=== PATIENT | male | born 1945 | race Caucasian/White ===

== ENCOUNTER → 2024-06-23 | Outpatient (BNVA) | payer MEDICARE, BC, SELFPAY | END | disposition home or self-care (01) | PROVIDERS: PCP Family Medicine; Referring Provider Family Medicine; Visit Provider Urology | DX: C61 Malignant neoplasm of prostate (principal); N40.1 Benign prostatic hyperplasia with lower urinary tract symptoms; N13.8 Other obstructive and reflux uropathy; I10 Essential (primary) hypertension; E11.9 Type 2 diabetes mellitus without complications | CPT/HCPCS: 55700; 76942; 81003; 96372; A4649; J1580; J3490; A9270 ==

== ENCOUNTER → 2024-06-25 | Outpatient (BNVA) | payer MEDICARE, BC, SELFPAY | END | disposition home or self-care (01) | PROVIDERS: PCP Family Medicine; Referring Provider Family Medicine; Visit Provider Urology | DX: N40.1 Benign prostatic hyperplasia with lower urinary tract symptoms (principal); N13.8 Other obstructive and reflux uropathy; E11.9 Type 2 diabetes mellitus without complications; I10 Essential (primary) hypertension; C15.9 Malignant neoplasm of esophagus, unspecified | CPT/HCPCS: 81003; 99212; G0463 ==

== ENCOUNTER → 2024-07-27 | Outpatient (CLI) | payer MEDICARE, BC, SELFPAY ==
[2024-07-27 14:26] LABS: Basophils % (Auto) 0 % (0-2.5); Eosinophils # (Auto) 0.1 Thou/mm3 (0.0-0.5); Eosinophils % (Auto) 1 % (0-10); Hematocrit 42.4 % (41.0-53.0); Hemoglobin 13.6 g/dL (13.5-16.0); Immature Granulocytes % (Auto) 0 % (0-0); Immature Granulocytes Auto 0.02 Thou/mm3 (0.00-0.00); Lymphocytes # (Auto) 1.3 Thou/mm3 (1.0-4.8); Lymphocytes % (Auto) 16 % (10-50); Mean Corpuscular HGB Conc 32.1 g/dl (31.0-37.0); Mean Corpuscular Hemoglobin 29.1 pg (25.0-35.0); Mean Corpuscular Volume 91 fL (80-100); Monocytes # (Auto) 0.6 Thou/mm3 (0.0-0.8); Monocytes % (Auto) 8 % (0-12); Neutrophils # (Auto) 6.2 Thou/mm3 (1.8-7.7); Neutrophils % (Auto) 75 % (37-80); Nucleated Red Blood Cell % 0 /100 WBC (0); Platelet Count 173 Thou/mm3 (140-440); RDW Standard Deviation 45.7 fL (35.1-43.9); Red Blood Count 4.67 Miln/mm3 (4.50-5.90); White Blood Count 8.3 Thou/mm3 (3.8-10.6)
[2024-07-27 14:38] LABS: T4 (Thyroxine) 6.2 mcg/dL (4.5-10.9)
[2024-07-27 15:00] LABS: Alanine Aminotransferase 17 U/L (10-49); Albumin, Serum 4.1 gm/dL (3.4-4.8); Albumin/Globulin Ratio 1.9 (1.2-2.2); Anion Gap 7 (7-16); Aspartate Amino Transferase 17 U/L (0-34); BUN/Creatinine Ratio 13 Ratio (12-20); Bilirubin,Total 0.6 mg/dL (0.3-1.2); Blood Urea Nitrogen 12 mg/dL (9-23); Calcium 9.3 mg/dL (8.3-10.6); Calcium (Corrected) 9.3 mg/dL (8.5-10.1); Carbon Dioxide 29.7 mMol/L (20.0-31.0); Cardiac Risk Estimate 2.7 RATIO (4.0-6.7); Chloride 103 mMol/L (98-107); Cholesterol 130 mg/dL (132-200); Creatinine (Component) 0.9 mg/dL (0.6-1.3); Globulin 2.2 gm/dL (2.3-3.5); Glucose 136 mg/dL (74-106); HDL Cholesterol 48 mg/dL (40-60); LDL Cholesterol,Calculated 64 mg/dL (0-130); Osmolality,Calculated 281 (275-295); Potassium 4.6 mMol/L (3.4-5.1); Sodium 140 mMol/L (136-145); Thyroid Stimulating Hormone 1.85 uIU/mL (0.55-4.78); Total Protein 6.3 gm/dL (5.7-8.2); Triglycerides 89 mg/dL (30-150); eGFR > 60 See Note
[2024-07-27 15:12] LABS: Alkaline Phosphatase 89 U/L (46-116)
[2024-07-27 16:00] LABS: Glucose Estimated Average 123 mg/dL (80-131); Hemoglobin A1C 5.9 % Hgb (4.8-6.0)
== END | disposition home or self-care (01) ==
LOC: COPL 13:33
PROVIDERS: PCP Family Medicine; Referring Provider Family Medicine; Visit Provider Family Medicine
DX: E78.2 Mixed hyperlipidemia (principal); I10 Essential (primary) hypertension; E11.9 Type 2 diabetes mellitus without complications; N40.1 Benign prostatic hyperplasia with lower urinary tract symptoms
CPT/HCPCS: 36415; 80053; 80061; 83036; 84436; 84443; 85025

== ENCOUNTER 2024-07-29 10:14 | Day surgery (SDC) | payer MEDICARE, BC, SELFPAY ==
[2024-07-28 10:44] VITALS: BMI 33.3
--- NOTE | 2024-07-28 13:12 | SUR.PREOP ---
Cardiac history and records reviewed with Dr Santo.
[2024-07-29] VITALS (7 sets, daily range): BP systolic 140–154; BP diastolic 78–93; PULSE 78–98; RESP 13–20; TEMP 36.3–36.8; O2SAT 95–99; BMI 32.3
--- NOTE | 2024-07-29 11:08 | SUR.PREOP ---
Dr Santo made aware of cardiac strip and pt stating he has vomited in the past upon induction of anesthesia.
--- NOTE | 2024-07-29 14:09 | PD.SUROPNT ---
Date of Procedure 07/29/24 Post Op Diagnosis Same Findings BPH with urinary obstruction, thickly trabeculated bladder with diverticuli no tumor recurrence Estimated Blood Loss 0.2 Surgeon Hernandez Humphreys MD Surgical Staff Operation Date: 07/29/24 12:30 Case Staff Anesthesiologist: John Santo
--- NOTE | 2024-07-29 14:19 | ESOP_ITS ---
Date of Procedure 07/29/24 Pre Op Diagnosis BPH with urinary obstruction and LUTS, bladder tumor status post TURBT more than 10 years ago status post bladder instillation of BCG Newly diagnosed prostate cancer Post Op Diagnosis Same Procedure Cystoscopic examination Findings Obstructive prostate with multiple shallow diverticuli no bladder tumor recurrence Procedure Description Indication for procedure this is a 79-year-old gentleman he is status post TURBT had a bladder instillation of BCG for bladder tumor more than 10 years ago he stafford d no recurrence he was recommended cystoscopic examination procedure and complications were discussed with the patient in great detail informed consent is obtained The patient received 120 mg Gentamicin IM pre-op prophylaxis. Informed consent was obtained for the procedure. General anesthesia was given uneventfully patient was positioned in a dorsal lithotomy position the patient was prepped in a sterile manner. Local anesthetic was placed into the urethra. Cystoscopy was then performed. The urethra had no intrinsic lesions up to the prostatic fossa. There was [bilobar/trilobar] prostatic enlargement. Examination of the bladder revealed no evidence of cancerous lesions, papillary or polyp type lesions or stones. There was marked] trabeculation with cellules and diverticula. There was diverticula posterior bladder wall right side no tumor in the diverticula both ureters were putting out clear urine. The bladder was completely drained and the scope removed. The patient tolerated the procedure well. Post-op instructions were given. The patient is to call the office should any problems occur. Follow-up appointment in urology office is given Anesthesia MAC Pathology / specimen None Estimated Blood Loss 0.1 Condition Stable Disposition PACU Surgeon Hernandez Humphreys MD Surgical Staff Operation Date: 07/29/24 12:30 Case Staff Anesthesiologist: John Santo
--- NOTE | 2024-07-29 14:48 | SUR.PHASEII ---
pt received from OR in recovery bay 2. pt asleep but responds to voice, breathing unlabored on room oxymask 2l. v/s stable. report received from Dr. Santo and Killian DUPONT.
--- NOTE | 2024-07-29 15:59 | SUR.PHASEII ---
pt awake and alert, breathing unlabored on room air. v/s stable. pt able to ambulate to wheelchair with steady gait. d/c instructions given with sister in room, all questions answered. pt d/c via wheelchair with all belongings.
== END 2024-07-29 15:59 | disposition home or self-care (01) ==
PROVIDERS: PCP Family Medicine; Referring Provider Urology; Visit Provider Urology
PROC: 0T7B8ZZ Dilation of Bladder, Via Natural or Artificial Opening Endoscopic (ICD-10-PCS; CPT 52000; principal; 2024-07-29 12:15)
DX: C61 Malignant neoplasm of prostate (principal); N13.8 Other obstructive and reflux uropathy; N40.1 Benign prostatic hyperplasia with lower urinary tract symptoms
CPT/HCPCS: 52000; A4217; A4649; J1580; J2704; J3010

== ENCOUNTER → 2024-09-18 | Outpatient (BNVA) | payer MEDICARE, BC, SELFPAY | END | disposition home or self-care (01) | PROVIDERS: PCP Family Medicine; Referring Provider Family Medicine; Visit Provider Urology | DX: C61 Malignant neoplasm of prostate (principal); Z85.01 Personal history of malignant neoplasm of esophagus; Z85.51 Personal history of malignant neoplasm of bladder; Z80.42 Family history of malignant neoplasm of prostate; I10 Essential (primary) hypertension; E11.9 Type 2 diabetes mellitus without complications | CPT/HCPCS: 99212; G0463 ==

== ENCOUNTER → 2024-11-04 | Outpatient (CLI) | payer MEDICARE, BC, SELFPAY ==
[2024-11-04 11:37] LABS: Basophils % (Auto) 0 % (0-2.5); Eosinophils # (Auto) 0.1 Thou/mm3 (0.0-0.5); Eosinophils % (Auto) 1 % (0-10); Hematocrit 40.7 % (41.0-53.0); Hemoglobin 13.6 g/dL (13.5-16.0); Immature Granulocytes % (Auto) 0 % (0-0); Immature Granulocytes Auto 0.02 Thou/mm3 (0.00-0.00); Lymphocytes # (Auto) 1.1 Thou/mm3 (1.0-4.8); Lymphocytes % (Auto) 14 % (10-50); Mean Corpuscular HGB Conc 33.4 g/dl (31.0-37.0); Mean Corpuscular Hemoglobin 29.8 pg (25.0-35.0); Mean Corpuscular Volume 89 fL (80-100); Monocytes # (Auto) 0.6 Thou/mm3 (0.0-0.8); Monocytes % (Auto) 7 % (0-12); Neutrophils # (Auto) 6.1 Thou/mm3 (1.8-7.7); Neutrophils % (Auto) 78 % (37-80); Nucleated Red Blood Cell % 0 /100 WBC (0); Platelet Count 184 Thou/mm3 (140-440); RDW Standard Deviation 45.4 fL (35.1-43.9); Red Blood Count 4.57 Miln/mm3 (4.50-5.90); White Blood Count 7.8 Thou/mm3 (3.8-10.6)
[2024-11-04 11:54] LABS: Prostate Specific Antigen 8.31 ng/mL (0-4.00)
[2024-11-04 12:01] LABS: Alanine Aminotransferase 12 U/L (10-49); Albumin, Serum 4.1 gm/dL (3.4-4.8); Albumin/Globulin Ratio 1.9 (1.2-2.2); Alkaline Phosphatase 78 U/L (46-116); Anion Gap 12 (7-16); Aspartate Amino Transferase 15 U/L (0-34); BUN/Creatinine Ratio 12 Ratio (12-20); Bilirubin,Total 0.7 mg/dL (0.3-1.2); Blood Urea Nitrogen 11 mg/dL (9-23); Calcium 8.4 mg/dL (8.3-10.6); Calcium (Corrected) 8.4 mg/dL (8.5-10.1); Carbon Dioxide 27.4 mMol/L (20.0-31.0); Chloride 105 mMol/L (98-107); Creatinine (Component) 0.9 mg/dL (0.6-1.3); Globulin 2.2 gm/dL (2.3-3.5); Glucose 102 mg/dL (74-106); Osmolality,Calculated 286 (275-295); Potassium 4.4 mMol/L (3.4-5.1); Sodium 144 mMol/L (136-145); Total Protein 6.3 gm/dL (5.7-8.2); eGFR > 60 See Note
== END | disposition home or self-care (01) ==
LOC: COPL 10:49
PROVIDERS: PCP Family Medicine; Referring Provider Family Medicine; Visit Provider Family Medicine
DX: E11.9 Type 2 diabetes mellitus without complications (principal); I10 Essential (primary) hypertension; R97.20 Elevated prostate specific antigen [PSA]
CPT/HCPCS: 36415; 80053; 84153; 85025

== ENCOUNTER 2024-11-19 00:44 | Emergency (ER) | payer MEDICARE, BC, SELFPAY ==
[2024-11-19 00:45] VITALS: BMI 32.1
[2024-11-19 01:13] VITALS: BP 150/99; PULSE 98; RESP 18; TEMP 36.8; O2SAT 95
--- NOTE | 2024-11-19 01:25 | PD.EDMALE ---
ED Male Genitalurinary RME/HPI General Chief complaint: Urogenital-Male Stated complaint: BLEEDING FROM CATHETER, RECENT PROSTATE SURGERY Time Seen by Provider: 11/19/24 01:02 Arrival date/time: 11/19/24 00:44 RME / HPI RME / HPI Narrative: Dr. Canas?s Main ED Evaluation: 79yo male who had a recent prostatectomy 1 week ago at [facility] [place] Dr. Nielsen and Dr. Humphreys presents to the ED for a chief complaint of hematuria. Patient states he had one episode of hematuria yesterday, reporting his home health nurse flushed the catheter and had no further issues. Patient states he had another episode tonight, reporting he felt his leg was wet and was unsure where it was coming from, so he came in for evaluation. Patient denies any abdominal pain, fever, chills, constipation, N/V or any other associated symptoms. Patient is on Eliquis. Patient notes he is supposed to have a follow-up appointment with Dr. Humphreys later this morning to get his dunham catheter removed. NKA. Related Data Home Medications ?Medication ?Instructions ?Recorded ?Confirmed Amlodipine Besylate 1 tab PO DAILY High Blood Pressure 04/14/13 12/11/24 ##0 Metformin Hcl 2 tab PO QPM Diabetes ##0 04/14/13 12/11/24 cholecalciferol (vitamin D3) 50 1 tab PO DAILY ##0 04/14/13 12/11/24 mcg (2,000 unit) tablet (Vitamin D3) tamsulosin 0.4 mg capsule (Flomax) 2 tab PO DAILY Prostate ##0 04/14/13 12/11/24 losartan 100 mg tablet 100 mg PO QDAY 07/25/21 12/11/24 aspirin 81 mg tablet,delayed 81 mg PO QDAY 11/01/23 12/11/24 release sodium bicarbonate 325 mg tablet 325 mg PO QDAY 02/28/24 12/11/24 apixaban 2.5 mg tablet (Eliquis) 2.5 mg PO BID 12/11/24 12/11/24 Allergies Allergy/AdvReac Type Severity Reaction Status Date / Time No Known Allergies Allergy Verified 12/11/24 13:16 Review of Systems Review of Systems Systems Reviewed: All systems reviewed, normal except as documented Past Medical History Past Medical History NEUROLOGIC: Negative Neurological Disorders or Seizures CARDIAC: Positive Cardiac Disorders, Cardiac Arrhythmia (SVT), Edema (a little) and Hypertension; Negative Congestive Heart Failure RESPIRATORY: Negative Chronic Obstructive Pulmonary Disease (COPD) GASTROINTESTINAL: Positive Gastrointestinal Disorders and Obesity; Negative Hepatitis GENITOURINARY: Positive Genitourinary Disorders, Kidney Stones and Benign Prostatic Hyperplasia; Negative Renal Disease MUSCULOSKELETAL: Negative Musculoskeletal Disorders ENT: Positive Glaucoma (being monitored); Negative Cataracts ENDOCRINE: Positive Endocrine Disorders and Diabetes Mellitus Type 2; Negative Diabetes Mellitus Type 1 HEMATOLOGIC: Negative Blood Disorders OTHER HISTORY: Positive Hospitalization (surgeries, and passing out, SVT), Chemotherapy (2015 bladder instillations), Chicken Pox, Measles, Mumps, Clostridium Difficile and Cancer (Esophageal CA 2001, Bladder CA 2014); Negative Autoimmune Disease, Shingles, Blood Transfusions, Blood Transfusion Reaction or Anesthesia Reactions Family History FAMILY HISTORY: Positive Family Cardiac Disorders and Family Surgery; Negative Family Psychiatric Problems, Family Respiratory Disorders, Family Gastrointestinal Problems, Family Cancer or Family Anesthesia Reaction Surgical History SURGICAL: Positive Cardiac Surgery (abation for SVT), Joint Replacement and Open Reduction Internal Fixation (Left ankle 2003, has metal); Negative Ear Surgery Social History SMOKING STATUS: Never smoker ED Exam Narrative Physical exam: GEN. APPEARANCE: The patient is alert awake oriented X-3 in no distress, lying down comfortably, does not look ill/toxic. Patient has good eye contact. Patient is cooperative. VITALS: All vitals were reviewed and the pulse ox is 95% on room air which is normal according to my interpretation. HEENT: Normocephalic, atraumatic. Pupils are equal and reactive. Oral mucosa is moist. Patent Nares NECK: Supple, nontender, no thyromegaly, no meningismus, no JVD CHEST: Symmetrical, atraumatic, and with equal expansion , Nontender on palpation no deformity and no crepitus. CARDIOVASCULAR: Heart regular rhythm no murmur or gallop rub or extra beats. LUNGS: Clear to auscultation bilaterally with symmetrical chest rise. No laboring tachypnea or wheezing. No intercostal subcostal retraction. No rales and no rhonchi. ABDOMEN: Soft, flat, nontender to palpation, no guarding or rebound tenderness. There are no abnormal masses palpated. Active and normal bowel sounds. EXTREMITIES: Nontender. No edema. No cyanosis. Patient is able to move all 4 extremities well, with full ROM and good CSM. : Supervisor Final present. Dunham catheter in place with dark brown urine in the tube, minimal urine noted in the dunham bag. No blood at the meatus. SKIN: Warm and dry, no jaundice or rashes noted. NEURO: Patient is MCNALLY x 4, Cranial nerves II through XII grossly intact. There is no focal neurologic deficits noted. GCS is 15, PNS and SANITATION OFFICER appear grossly intact. : catheter in place with minimal urine in bag PSYCHIATRIC: Patient is in normal mood and affect. Course Quality Measures none Orders Category Date Time Status Bladder Scan NEEDED Care 11/19/24 02:18 Completed Dunham to Leg Bag Routine Care 11/19/24 01:35 Ordered Irrigate Urinary Catheter PRN Care 11/19/24 01:35 Completed Vital Signs Vital signs: Vital Signs Temperature 98.2 F 11/19/24 01:13 Pulse Rate 98 11/19/24 01:13 Respiratory Rate 18 11/19/24 01:13 Blood Pressure 150/99 H 11/19/24 01:13 Pulse Oximetry (%) 95 11/19/24 01:13 Oxygen Delivery Method Room Air 11/19/24 01:13 Urogenital - Male MDM Narrative MDM Narrative:: Scribe Attestation: 11/19/24 - Corinne Magaña am scribing for and in the presence of Dr. Canas. Patient presents with non draining dunham catheter. No abd pain/fever/flank pain or difficulty passing gas. Patient is HD stable. Will attempt to flush catheter, and if able to drain bladder will dc to home so he can go to his urology appt today. Patient not septic. Patient's dunham was flushed and is now draining. Bladder scan shows 0cc. Patient is stable to be discharged home. Patient data External records reviewed:: [facility] previous records (Per chart review, patient has no previous ED visits or admissions to this facility.) Clinical information provided by:: patient Social determinants that could affect healthcare access:: none Patient has the following chronic illnesses:: DM, HTN, BPH s/p prostatectomy How is presenting disease/condition affected by chronic disease/condition?: exacerbated by Evaluation data The following diagnostics were reviewed and interpreted by me:: other (specify) (none) Lab and/or radiology exams considered but not ordered:: none Interpretation Summary: none Medications / Prescriptions Medications or Prescriptions considered but not ordered:: none Medication administrations:: none Consultations Consultation(s) initiated? (list below): No Diagnosis Urogenital Male Differential Diagnosis: other (bladder outlet obstruction, hematuria, hardware malfunction) Most likely diagnosis given after review of the tests above:: see clinical impression below Admission Indicated Admission indicated?: not indicated Admission Request Was there a request for admission?: No Disposition Plan Disposition Plan: Discharge Discharge Attestation Discharge Attestation: The patient and all family members were given an opportunity to ask questions and understood the discharge instructions. Discharge instructions specifically effects, indications for sooner follow up or return to the emergency department, and the expected course of current diagnosis. Patient condition: Stable Discharge Plan Plan Patient Disposition: HOME (Self Care) Prescriptions/Referrals Prescriptions/Med Rec: No Action Eliquis 2.5 mg tablet 2.5 mg PO BID losartan 100 mg tablet 100 mg PO QDAY aspirin 81 mg tablet,delayed release (DR/EC) 81 mg PO QDAY sodium bicarbonate 325 mg tablet 325 mg PO QDAY Amlodipine Besylate 5 MG tablet 1 tab PO DAILY Qty: 0 tamsulosin [Flomax] 0.4 MG capsule,extended release 24hr 2 tab PO DAILY Qty: 0 cholecalciferol (vitamin D3) [Vitamin D3] 2,000 UNIT tablet 1 tab PO DAILY Qty: 0 Metformin Hcl 500 MG tablet 2 tab PO QPM Qty: 0 Problem List Clinical Impression: Hematuria Patient/Caregiver Discharge Instructions Discharge Activity: activity as tolerated Education Materials: ED Hematuria Additional Instructions: Please continue to monitor the drainage of your Dunham catheter. Please go to your appointment with your urologist today to discuss definitive management of your hematuria as well as your catheter. Return immediately if you develop fever, if catheter does not drain, abdominal pain or any other symptom of concern. Print Language: Tajik Stand Alone Forms: Irena Award Info., Patient Portal Info Letter
== END 2024-11-19 02:27 | disposition home or self-care (01) ==
LOC: SERX 02:37
PROVIDERS: Emergency Provider Emergency Medicine; PCP Family Medicine
DX: R31.9 Hematuria, unspecified (principal)
CPT/HCPCS: 99282

== ENCOUNTER → 2024-11-19 | Outpatient (BNVA) | payer MEDICARE, BC, SELFPAY | END | disposition home or self-care (01) | PROVIDERS: PCP Family Medicine; Referring Provider Family Medicine; Visit Provider Urology | DX: C61 Malignant neoplasm of prostate (principal); I10 Essential (primary) hypertension; E11.9 Type 2 diabetes mellitus without complications | CPT/HCPCS: 99212; G0463 ==

== ENCOUNTER → 2024-11-23 | Outpatient (BNVA) | payer MEDICARE, BC, SELFPAY | END | disposition home or self-care (01) | PROVIDERS: PCP Family Medicine; Referring Provider Family Medicine; Visit Provider Urology | DX: C61 Malignant neoplasm of prostate (principal); I10 Essential (primary) hypertension; E11.9 Type 2 diabetes mellitus without complications | CPT/HCPCS: 99202; G0463 ==

== ENCOUNTER → 2024-11-23 | Outpatient (CLI) | payer MEDICARE, BC, SELFPAY ==
--- NOTE | 2024-11-23 08:14 | XR_ITS ---
Examination: Cystogram with KUB 14 spot fluoroscopic films of the bladder Fluoroscopy Date and time: November 23, 2024 0925 hours INDICATIONS: Post prostatectomy, diagnosis malignant neoplasm prostate, abscess bladder TECHNIQUE AND FINDINGS: Patient's bladder filled with 150 cc Cystografin There is a leak at the base of the bladder on the left side on all visualized images Fluoroscopy 20 seconds, 14 spot fluoroscopic films of the bladder IMPRESSION: There is a leak at the base of the bladder on the left side
== END | disposition home or self-care (01) ==
PROVIDERS: PCP Family Medicine; Referring Provider Urology; Visit Provider Urology
DX: N32.89 Other specified disorders of bladder (principal); C61 Malignant neoplasm of prostate
CPT/HCPCS: 51600; 74430; Q9958

== ENCOUNTER → 2024-11-27 | Outpatient (BNVA) | payer MEDICARE, BC, SELFPAY | END | disposition home or self-care (01) | PROVIDERS: PCP Family Medicine; Referring Provider Family Medicine; Visit Provider Urology | DX: C61 Malignant neoplasm of prostate (principal); I10 Essential (primary) hypertension; E11.9 Type 2 diabetes mellitus without complications; Z85.51 Personal history of malignant neoplasm of bladder; Z85.01 Personal history of malignant neoplasm of esophagus | CPT/HCPCS: 99212; G0463 ==

== ENCOUNTER → 2024-11-27 | Outpatient (CLI) | payer MEDICARE, BC, SELFPAY ==
--- NOTE | 2024-11-27 08:13 | XR_ITS ---
Examination: Cystogram Fluoroscopy 3 spot fluoroscopic films of the bladder Date and time: November 20 [id number] 0912 hours INDICATIONS: Postop prostatectomy, diagnosis malignant neoplasm prostate, bladder leak at the base of the bilateral left side on cystogram November 23, 2024 TECHNIQUE AND FINDINGS: Patient received 100 cc Cystografin No change in the contrast leak from the bladder on the left side IMPRESSION: No change in the contrast leak at the base of the bladder on the left side 3 spot fluoroscopic films, fluoroscopy 10 seconds
== END | disposition home or self-care (01) ==
PROVIDERS: Referring Provider Urology; Visit Provider Urology
DX: C61 Malignant neoplasm of prostate (principal)
CPT/HCPCS: 51600; 74430; Q9958

== ENCOUNTER → 2024-12-03 | Outpatient (BNVA) | payer MEDICARE, BC, SELFPAY | END | disposition home or self-care (01) | PROVIDERS: PCP Family Medicine; Referring Provider Family Medicine; Visit Provider Urology | DX: C61 Malignant neoplasm of prostate (principal); Z90.79 Acquired absence of other genital organ(s); I10 Essential (primary) hypertension; E11.9 Type 2 diabetes mellitus without complications; Z85.51 Personal history of malignant neoplasm of bladder; Z85.01 Personal history of malignant neoplasm of esophagus | CPT/HCPCS: 99212; G0463 ==

== ENCOUNTER → 2024-12-03 | Outpatient (CLI) | payer MEDICARE, BC, SELFPAY ==
--- NOTE | 2024-12-03 08:28 | XR_ITS ---
Examination: Cystogram with KUB Fluoroscopy 5 spot fluoroscopic films of the bladder Exam date and time: December 03, 2024 0934 hours INDICATIONS: Postop prostatectomy with left laterally TECHNIQUE AND FINDINGS: 100 cc Cystografin administered with the same large leak at the base of the bilateral, left side Fluoroscopy 0.7 minute radiation dose 57.4 milligray 5 spot fluoroscopic films of the bladder IMPRESSION: No change in large left lower bladder leak
== END | disposition home or self-care (01) ==
PROVIDERS: PCP Family Medicine; Referring Provider Urology; Visit Provider Urology
DX: C67.9 Malignant neoplasm of bladder, unspecified (principal); C61 Malignant neoplasm of prostate
CPT/HCPCS: 51600; 74430; Q9958

== ENCOUNTER → 2024-12-11 | Outpatient (CLI) | payer MEDICARE, BC, SELFPAY ==
--- NOTE | 2024-12-11 08:49 | XR_ITS ---
Examination: Cystogram Fluoroscopy 10 spot fluoroscopic films of the bladder Date and time: December 11, 2024 0859 hours INDICATIONS: Status post prostatectomy, diagnosis malignant neoplasm prostate TECHNIQUE AND FINDINGS: Administration 80 cc Cystografin Again noted lead at the base of the bladder on the left side IMPRESSION: No improvement in leak at the base of the bladder on the left side Fluoroscopy 0.1 minute radiation dose 37.86 milligray 10 spot fluoroscopic films of the bladder
== END | disposition home or self-care (01) ==
PROVIDERS: PCP Family Medicine; Referring Provider Urology; Visit Provider Urology
DX: N32.89 Other specified disorders of bladder (principal); C61 Malignant neoplasm of prostate; C67.9 Malignant neoplasm of bladder, unspecified
CPT/HCPCS: 51600; 74430; Q9958

== ENCOUNTER → 2024-12-11 | Outpatient (BNVA) | payer MEDICARE, BC, SELFPAY | END | disposition home or self-care (01) | PROVIDERS: PCP Family Medicine; Referring Provider Family Medicine; Visit Provider Physician Assistant | DX: C61 Malignant neoplasm of prostate (principal); R32 Unspecified urinary incontinence; Z85.51 Personal history of malignant neoplasm of bladder; Z85.01 Personal history of malignant neoplasm of esophagus | CPT/HCPCS: 96372; 99212; J1580; G0463 ==

== ENCOUNTER 2025-01-05 13:59 | Outpatient (RCR) | payer MEDICARE, BC, SELFPAY ==
--- NOTE | 2025-01-05 16:31 | CTCCONSULT_ITS ---
[facility] [address] [place], [place] [address] Consultation Note Date: 01/05/2025 MR#: [id number] Name: NEFTALI SOLIMAN : 1945 Dx: Prostate cancer C61 Attending physician. Roshan Pearson MD Referring physician. Hernandez Humphreys MD Reason for consultation. Patient with pT3bNx status post extraperitoneal robotic prostatectomy for prostate CA referred to the cancer treatment center. History of Present Illness: Patient is a 79-year-old with PSA in the 8 range earlier this year and underwent prostate biopsy revealing group 4 grade 8 (4+4) group 5 grade 9 (4+5) involving various parts of the right and left prostate. On 11/11/2024 patient underwent robotic radical prostatectomy at [facility]. Final path revealed prostate adenocarcinoma Azalea score 4+5 = 9 group 5. Estimated prostate involved by tumor 51 to 60%. Extraprostatic extension present margin involvement multifocal with right bladder neck and left bladder neck margin involved with invasive carcinoma. Perineural invasion identified extensive resection margin positive. Nodes were not submitted. pT3b NX. According to op note status post robotic radical prostatectomy status post extraperitoneal robotic prostatectomy adhesions and attempted transperineal prostatectomy extremely complex case. Patient's most recent imaging study was cystogram 12/11/2024 showing no improvement in leak at the base of bladder on the left s amelie. Reportedly had PSMA PET scan prior to surgery in October results not immediately available to us.. Patient now referred to the cancer treatment center. Past Medical History: History of high-grade nonmuscle invasive bladder cancer status post bladder instillation of Mitomycin-C.; Kidney stones diabetes mellitus hypertension Meds. Metformin losartan amlodipine sodium bicarbonate vitamin D3 Family history. 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 Never denies smoking drinking use marijuana substances or 50 years ago Review of Systems: Has easy bruising leaky urine Physical Exam: General: Well-appearing gentleman in no acute distress HEENT: Atraumatic no cephalic extraocular is intact no oral lesion no cervical or supraclavicular adenopathy CV: Chest clear to auscultation heart regular rate and rhythm ABD: Soft no organomegaly or tenderness EXT: No cyanosis clubbing or edema Assessment: 1. Group 5 Azalea score (4+5) = 9 CA of the prostate status post extraperitoneal robotic prostatectomy adhesional lysis extreme complex case according to op note. 11/11/2024. Perineural invasion bladder neck margin involved extraprostatic extension perineural invasion. 2. Due to the above, patient is at high risk of recurrence, and do recommend postop radiation based on RTOG guidelines. 6840 centigray to the tumor bed region via modern VMAT technique. 3. Due to continued urinary irregularities and recent surgery I prefer to wait another 2 to 3 months before offering the treatments. 4. Reportedly had preop PSMA PET done at [facility] results not immediately available to us. Will attempt to get a copy. CBC CMP PSA was ordered today. 5. Do recommend also hormone manipulation. Dr. Hu reportedly will be seeing patient next month who will discuss this with the patient. 6. Thank you very much for allowing me to evaluate and manage this patient . Cc: Roshan Humphreys MD Electronically signed by: Narciso Diaz MD, DABR 01/05/2025 4:29 PM
== END 2025-01-31 23:59 | disposition home or self-care (01) ==
LOC: SCTC 13:59
PROVIDERS: PCP Family Medicine; Referring Provider Urology; Visit Provider Radiology Therapeutic Radiology
DX: C61 Malignant neoplasm of prostate (principal); Z90.79 Acquired absence of other genital organ(s)
CPT/HCPCS: 99213; G0463

== ENCOUNTER → 2025-01-21 | Outpatient (CLI) | payer MEDICARE, BC, SELFPAY ==
[2025-01-21 15:29] LABS: Collection Type, Urine Clean Catch
[2025-01-21 16:14] LABS: Basophils # (Auto) 0.0 Thou/mm3 (0.0-0.2); Basophils % (Auto) 1 % (0-2.5); Eosinophils # (Auto) 0.1 Thou/mm3 (0.0-0.5); Eosinophils % (Auto) 1 % (0-10); Hematocrit 41.6 % (41.0-53.0); Hemoglobin 13.3 g/dL (13.5-16.0); Immature Granulocytes Auto 0.03 Thou/mm3 (0.00-0.00); Lymphocytes # (Auto) 1.6 Thou/mm3 (1.0-4.8); Lymphocytes % (Auto) 19 % (10-50); Mean Corpuscular HGB Conc 32.0 g/dl (31.0-37.0); Mean Corpuscular Hemoglobin 29.1 pg (25.0-35.0); Mean Corpuscular Volume 91 fL (80-100); Monocytes # (Auto) 0.7 Thou/mm3 (0.0-0.8); Monocytes % (Auto) 8 % (0-12); Neutrophils # (Auto) 5.8 Thou/mm3 (1.8-7.7); Neutrophils % (Auto) 71 % (37-80); Nucleated Red Blood Cell # 0.00 Thou/mm3 (0.00-0.00); Nucleated Red Blood Cell % 0 /100 WBC (0); Platelet Count 222 Thou/mm3 (140-440); RDW Standard Deviation 47.0 fL (35.1-43.9); Red Blood Count 4.57 Miln/mm3 (4.50-5.90); White Blood Count 8.2 Thou/mm3 (3.8-10.6)
[2025-01-21 16:30] LABS: Prostate Specific Antigen 0.10 ng/mL (0-4.00)
[2025-01-21 16:37] LABS: Bilirubin,Urine Negative (Negative); Blood,Urine Negative (Negative); Clarity,Urine Clear (Clear/Hazy); Color,Urine Yellow (Lt Yel-Yel); Glucose, Urine Negative (Negative); Ketones,Urine Negative (Negative); Leukocyte Esterase,Urine Positive (Negative); Nitrite,Urine Negative (Negative); PH,Urine 5.5 (5.0-7.0); Protein,Urine Negative (Neg - Trace); RBC,Urine 3 /hpf (0-3); Specific Gravity,Urine 1.021 (1.001-1.035); Squamous Epithelial Cell,Urine < 1 /hpf (0-5); Urobilinogen,Urine Negative mg/dL (0.0-1.0); WBC,Urine 30 /hpf (0-5)
[2025-01-21 16:45] LABS: Alanine Aminotransferase 10 U/L (10-49); Albumin, Serum 4.1 gm/dL (3.4-4.8); Albumin/Globulin Ratio 2.0 (1.2-2.2); Alkaline Phosphatase 81 U/L (46-116); Anion Gap 9 (7-16); Aspartate Amino Transferase 17 U/L (0-34); BUN/Creatinine Ratio 11 Ratio (12-20); Bilirubin,Total 0.5 mg/dL (0.3-1.2); Blood Urea Nitrogen 10 mg/dL (9-23); Calcium 9.8 mg/dL (8.3-10.6); Calcium (Corrected) 9.8 mg/dL (8.5-10.1); Carbon Dioxide 26.9 mMol/L (20.0-31.0); Chloride 105 mMol/L (98-107); Creatinine (Component) 0.9 mg/dL (0.6-1.3); Globulin 2.1 gm/dL (2.3-3.5); Glucose 103 mg/dL (74-106); Osmolality,Calculated 280 (275-295); Potassium 4.3 mMol/L (3.4-5.1); Sodium 141 mMol/L (136-145); Total Protein 6.2 gm/dL (5.7-8.2); eGFR > 60 See Note
== END | disposition home or self-care (01) ==
LOC: SCTO 14:40
PROVIDERS: PCP Family Medicine; Referring Provider Radiology Therapeutic Radiology; Visit Provider Radiology Therapeutic Radiology
DX: C61 Malignant neoplasm of prostate (principal)
CPT/HCPCS: 36415; 80053; 81001; 84153; 85025; 87077; 87086; 87186

== ENCOUNTER 2025-02-15 09:57 | Outpatient (RCR) | payer MEDICARE, BC, SELFPAY ==
--- NOTE | 2025-02-15 11:35 | CTCCONSULT_ITS ---
Patient: NEFTALI SOLIMAN : 1945 MR#: [id number] Page 2 of 4 CONSULTATION NOTE DATE OF CONSULTATION: 02/15/2025 NAME: NEFTALI SOLIMAN ACCOUNT: [id number] : 1945 AGE: 79 REFERRING PHYSICIAN: Roshan Pearson MD PRIMARY PHYSICIAN: Roshan Pearson MD REASON FOR VISIT: ONCOLOGY HISTORY: DIAGNOSIS: Malignant neoplasm of prostate [ICD10] C61 DATE OF DIAGNOSIS: 11/11/2024 prostate cancer History of bladder cancer high-grade nonmuscle invasive treated with mitomycin Also history of esophageal cancer about 25 years ago and treated at [facility] with esophageal resection STAGE/TNM: T3b NX MX Status post extraperitoneal robotic prostatectomy Amita score 4+59 Estimated prostate involvement 51 to 60% Extraprostatic extension with positive margins involving multifocal with right bladder neck and left bladder neck margin involved with invasive cancer and positive for perineural invasion Extraperitoneal robotic prostatectomy adhesions and attempted transperineal prostatectomy extremely complex case TREATMENT HISTORY: Care?Plan Start?Date Cycle Day Intent Lupron?22.5?mg?q?3?mon 02/15/2025 1 90 Maintenance HISTORY OF PRESENT ILLNESS: 79-year-old male male with a high risk prostate cancer here for follow-up. Patient had prostatectomy. Patient is still incontinent. Patient seen by radiation oncology and planned for radiation. 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 amlodipine - 5 mg Daily 2. Casodex - 50 mg 1 tab Daily 3. losartan - 100 mg Daily 4. metformin - 500 mg Twice a Day 5. sodium bicarbonate - 325 mg Daily Medications Last Reconciled by Afsaneh Dawkins LVN on 01/07/2025 ALLERGIES: No Known Drug Allergies REVIEW OF SYSTEMS: A complete 14-point review of systems was performed and is negative except as noted in interval history. PHYSICAL EXAMINATION: VITAL SIGNS: Temperature?99.1, B/P?124/84, Oxygen?Saturation?95% Weight?200?lbs PAIN: 0 - No pain ECOG Performance Status: 0 - Asymptomatic and fully active GENERAL APPEARANCE: Appears well, in no apparent distress, appropriately interactive. HEENT: Normocephalic, no temporal wasting, normal conjunctiva, no scleral icterus, normal hearing, lips without lesions, neck normal range of motion. CARDIOVASCULAR: Not assessed. PULMONARY: Normal respiratory effort, no respiratory distress or use of accessory muscles, speaking in full sentences, no tachypnea. EXTREMITIES: No pedal edema or cyanosis. SKIN: Normal skin appearance. NEUROLOGIC: Alert and oriented x4. PSHYCHIATRIC: Appropriate affect, mood normal, behavior normal, intact thought and speech. LABORATORY DATA: I have personally reviewed and interpreted each of the patient?s relevant lab tests, abnormal findings are below: Date 01/21/25 ??WHITE?BLOOD?COUNT?(Thou/mm3) 8.2 ??RED?BLOOD?COUNT?(Miln/mm3) 4.57 ??HEMOGLOBIN?(gm/dl) 13.3?L ??HEMATOCRIT?(%) 41.6 ??PLATELET?COUNT?(Thou/mm3) 222 ??NEUTROPHILS?%,?AUTO?(%) 71 ??LYMPH?%,?AUTO?(%) 19 ??NEUTROPHILS,?AUTO?(Thou/mm3) 5.8 ??GLUCOSE,RANDOM?(mg/dL) 103 ??BLOOD?UREA?NITROGEN?(mg/dL) 10 ??CREATININE?(mg/dL) 0.90 ??SODIUM?(mmol/L) 141 ??POTASSIUM?(mmol/L) 4.3 ??CHLORIDE?(mmol/L) 105 ??CrCl?(CandG)?(ml/min) 70.65 ??AST/SGOT?(Unit/L) 17 ??ALT/SGPT?(Unit/L) 10 ??ALKALINE?PHOSPHATASE?(Unit/L) 81 ??BILIRUBIN,?TOTAL?(mg/dL) 0.5 ??PROTEIN?TOTAL?(gm/dl) 6.2 ??ALBUMIN,?SERUM?(gm/dl) 4.1 ??GLOBULIN?(gm/dl) 2.1?L ??ALBUMIN/GLOBULIN?RATIO 2.0 ??CALCIUM,?SERUM?(mg/dL) 9.8 ??CALCIUM?SERUM?(CORRECTED)?(mg/dL) 9.8 ASSESSMENT/PLAN: Prostate cancer Patient had T3b tumor status post robotic prostatectomy No lymph nodes were removed Lymphovascular invasion as well as involvement of the bladder neck Plan for radiation Will start on Casodex followed by [facility] Will add Xtandi once radiation is complete RTC in 4 to 6 weeks Please get records for PSMA PET scan completed by patient outpatient ORDERS: Order # Description [id number] MD Follow Up 3 Months + PSA [id number] Comprehensive Metabolic Panel - 12 + CBC with Auto Diff [id number] DXA L-Spine and Hip [id number] MD Follow Up 2 Months RETURN TO CLINIC: I reviewed the diagnosis, prognosis, and recommended treatment/procedure options with the patient (and/or their legal senior customer service representative), including the potential benefits, risks, side effects and alternative therapies. We also discussed the option of no treatment and the possibility of clinical trial participation, if applicable. All questions were addressed, and they demonstrated understanding. They provided informed consent to proceed with the proposed plan of care. BILLING AND COMPLIANCE: I reviewed external records from providers outside my specialty as summarized above. I spent a total of 50 minutes on this patient?s care on the day of their visit excluding time spent related to any billed procedures. This time includes time spent with the patient as well as time spent documenting in the medical record, reviewing patients records and tests, obtaining history, placing orders, communicating with other healthcare professionals, counseling the patient, family or caregiver, and/or care coordination for the diagnoses above. Electronically Signed by: Matheus Hu MD T: 11:33 AM CC: PCP: Roshan Pearson Referring: Roshan Pearson This document was completed utilizing speech recognition software. Grammatical errors, random word insertions, pronoun errors, and incomplete sentences are an occasional consequence of this system due to software limitations, ambient noise, and hardware issues. Any formal questions or concerns about the content, text or information contained within the body of this dictation should be directly addressed to the provider for clarification.
== END 2025-03-02 23:59 | disposition home or self-care (01) ==
LOC: SCTC 09:57
PROVIDERS: PCP Family Medicine; Referring Provider Family Medicine; Visit Provider Internal Medicine Hematology & Oncology
DX: C61 Malignant neoplasm of prostate (principal); Z85.51 Personal history of malignant neoplasm of bladder; Z85.01 Personal history of malignant neoplasm of esophagus; Z90.79 Acquired absence of other genital organ(s)
CPT/HCPCS: 99212; G0463

== ENCOUNTER 2025-03-25 10:59 | Outpatient (RCR) | payer MEDICARE, BC, SELFPAY | END 2025-04-02 23:59 | disposition home or self-care (01) | LOC: SCTC 10:59 | PROVIDERS: PCP Family Medicine; Referring Provider Family Medicine; Visit Provider Radiology Therapeutic Radiology | DX: Z51.11 Encounter for antineoplastic chemotherapy (principal); Z51.0 Encounter for antineoplastic radiation therapy; C61 Malignant neoplasm of prostate; Z90.79 Acquired absence of other genital organ(s) | CPT/HCPCS: 77014; 77290; 77300; 77301; 77334; 77338; 96402; 99213; J9217; G0463 ==

== ENCOUNTER → 2025-04-06 | Outpatient (CLI) | payer MEDICARE, BC, SELFPAY ==
--- NOTE | 2025-04-06 12:40 | XR_ITS ---
Examination: Bone densitometry Date and time of exam: April 06, 2025, 12:42 p.m. INDICATIONS: 79-year-old male with diagnosis age-related osteoporosis, history left ankle fracture, diabetic, vitamin D 20 years Technique: Lumbar spine and hip total bone mineralization values of an calculated. Peak reference and age match control results have been displayed. Findings: Lumbar spine total bone mineralization is 1.456 gm/cm2. This is 3.3 standard deviations above peak reference. This is 4.5 standard deviations above age-matched controls. Hip total bone mineralization is 1.038 gm/cm2 This is 1.0 standard deviations at peak reference. This is 1.1 standard deviations above age-matched controls Impression: There is normal mineralization based on lumbar spine measurements. There is osteopenia based on hip measurements
[2025-04-06 13:55] LABS: Basophils # (Auto) 0.0 Thou/mm3 (0.0-0.2); Basophils % (Auto) 1 % (0-2.5); Eosinophils # (Auto) 0.0 Thou/mm3 (0.0-0.5); Eosinophils % (Auto) 1 % (0-10); Hematocrit 40.7 % (41.0-53.0); Hemoglobin 13.0 g/dL (13.5-16.0); Immature Granulocytes Auto 0.02 Thou/mm3 (0.00-0.00); Lymphocytes # (Auto) 1.1 Thou/mm3 (1.0-4.8); Lymphocytes % (Auto) 15 % (10-50); Mean Corpuscular HGB Conc 31.9 g/dl (31.0-37.0); Mean Corpuscular Hemoglobin 27.8 pg (25.0-35.0); Mean Corpuscular Volume 87 fL (80-100); Monocytes # (Auto) 0.5 Thou/mm3 (0.0-0.8); Monocytes % (Auto) 7 % (0-12); Neutrophils # (Auto) 5.9 Thou/mm3 (1.8-7.7); Neutrophils % (Auto) 77 % (37-80); Nucleated Red Blood Cell # 0.00 Thou/mm3 (0.00-0.00); Nucleated Red Blood Cell % 0 /100 WBC (0); Platelet Count 194 Thou/mm3 (140-440); RDW Standard Deviation 49.3 fL (35.1-43.9); Red Blood Count 4.67 Miln/mm3 (4.50-5.90); White Blood Count 7.6 Thou/mm3 (3.8-10.6)
[2025-04-06 14:10] LABS: Prostate Specific Antigen < 0.10 ng/mL (0-4.00)
[2025-04-06 14:11] LABS: Alanine Aminotransferase 11 U/L (10-49); Albumin, Serum 4.5 gm/dL (3.4-4.8); Albumin/Globulin Ratio 2.4 (1.2-2.2); Alkaline Phosphatase 79 U/L (46-116); Anion Gap 7 (7-16); Aspartate Amino Transferase 17 U/L (0-34); BUN/Creatinine Ratio 13 Ratio (12-20); Bilirubin,Total 0.7 mg/dL (0.3-1.2); Blood Urea Nitrogen 12 mg/dL (9-23); Calcium 9.8 mg/dL (8.3-10.6); Calcium (Corrected) 9.8 mg/dL (8.5-10.1); Carbon Dioxide 29.0 mMol/L (20.0-31.0); Chloride 105 mMol/L (98-107); Creatinine (Component) 0.9 mg/dL (0.6-1.3); Globulin 1.9 gm/dL (2.3-3.5); Glucose 109 mg/dL (74-106); Osmolality,Calculated 281 (275-295); Potassium 4.4 mMol/L (3.4-5.1); Sodium 141 mMol/L (136-145); Total Protein 6.4 gm/dL (5.7-8.2); eGFR > 60 See Note
== END | disposition home or self-care (01) ==
LOC: CDIM 12:48 → SCTO 12:51
PROVIDERS: PCP Family Medicine; Referring Provider Internal Medicine Hematology & Oncology; Visit Provider Radiology Diagnostic Radiology
DX: M85.88 Other specified disorders of bone density and structure, other site (principal); C61 Malignant neoplasm of prostate
CPT/HCPCS: 36415; 77080; 80053; 84153; 85025

== ENCOUNTER → 2025-04-20 | Outpatient (BNVA) | payer MEDICARE, BC, SELFPAY | END | disposition home or self-care (01) | PROVIDERS: PCP Family Medicine; Referring Provider Family Medicine; Visit Provider Physician Assistant | DX: C61 Malignant neoplasm of prostate (principal); Z85.51 Personal history of malignant neoplasm of bladder; I10 Essential (primary) hypertension; E66.9 Obesity, unspecified; Z68.37 Body mass index [BMI] 37.0-37.9, adult; Z85.01 Personal history of malignant neoplasm of esophagus | CPT/HCPCS: Q3014 ==

== ENCOUNTER 2025-04-28 10:56 | Outpatient (RCR) | payer MEDICARE, BC, SELFPAY | END 2025-05-02 23:59 | disposition home or self-care (01) | LOC: SCTC 10:56 | PROVIDERS: PCP Family Medicine; Referring Provider Family Medicine; Visit Provider Internal Medicine Hematology & Oncology | DX: Z51.0 Encounter for antineoplastic radiation therapy (principal); C61 Malignant neoplasm of prostate; Z90.79 Acquired absence of other genital organ(s) | CPT/HCPCS: 77336; 77385 ==

== ENCOUNTER 2025-06-02 10:32 | Outpatient (RCR) | payer MEDICARE, BC, SELFPAY ==
--- NOTE | 2025-05-03 12:16 | CTCTRTNOTE_ITS ---
[facility] [address] [place], [place] [address] Weekly Management Date: 05/03/2025 ?? Name: NEFTALI SOLIMAN : 1945 A. Patient is currently at 2340 cGy. B. Patient is tolerating treatment well. C. Resume radiation therapy. Electronically signed by: Narciso Diaz M.D. 05/03/2025 12:14 PM
--- NOTE | 2025-05-19 11:21 | CTCFLWUP_ITS ---
Patient: NEFTALI SOLIMAN : 1945 Page 2 of 4 FOLLOW UP NOTE DATE OF SERVICE: 05/19/2025 NAME: NEFTALI SOLIMAN ACCOUNT: [id number] : 1945 AGE: 79 INTERVAL HISTORY: 79-year-old male here for follow-up on prostate cancer. Patient has done PSMA but we have not still received his report. Patient's pathology revealed that patient have high risk prostate cancer. Patient is still undergoing radiation. Will start him on Xtandi once radiation is complete. Patient tolerated Lupron well. ONCOLOGY HISTORY:?[facility] Hx? DIAGNOSIS: Malignant neoplasm of prostate [ICD10] C61 DATE OF DIAGNOSIS: 11/11/2024 prostate cancer History of bladder cancer high-grade nonmuscle invasive treated with mitomycin Also history of esophageal cancer about 25 years ago and treated at [place] with esophageal resection STAGE/TNM: T3b NX MX Status post extraperitoneal robotic prostatectomy Amita score 4+59 Estimated prostate involvement 51 to 60% Extraprostatic extension with positive margins involving multifocal with right bladder neck and left bladder neck margin involved with invasive cancer and positive for perineural invasion Extraperitoneal robotic prostatectomy adhesions and attempted transperineal prostatectomy extremely complex case TREATMENT HISTORY: Care?Plan Start?Date Cycle Day Intent Lupron?22.5?mg?q?3?mon 02/15/2025 1 90 Maintenance HISTORY OF PRESENT ILLNESS: 79-year-old male male with a high risk prostate cancer here for follow-up. Patient had prostatectomy. Patient is still incontinent. Patient seen by radiation oncology and planned for radiation. 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 amlodipine - 5 mg Daily 2. aspirin - 81 mg 1 tab Daily 3. Bactrim - 4. losartan - 100 mg Daily 5. metFORMIN - 500 mg 2 tab Daily 6. sodium bicarbonate - 325 mg Daily 7. Xtandi - 80 mg 2 tab Daily?Palabra Meds? Medications Last Reconciled by Michelle Puente MD on 05/19/2025 ALLERGIES: No Known Drug Allergies REVIEW OF SYSTEMS: A complete 14-point review of systems was performed and is negative except as noted in interval history. PHYSICAL EXAMINATION:?[facility] PE? VITAL SIGNS: Temperature?98.1, B/P?140/78, Oxygen?Saturation?97% Weight?204?lbs (Change?since?05/17/25:?2?lbs) PAIN: 0 - No pain ECOG Performance Status: 0 - Asymptomatic and fully active GENERAL APPEARANCE: Appears well, in no apparent distress, appropriately interactive. HEENT: Normocephalic, no temporal wasting, normal conjunctiva, no scleral icterus, normal hearing, lips without lesions, neck normal range of motion. CARDIOVASCULAR: Not assessed. PULMONARY: Normal respiratory effort, no respiratory distress or use of accessory muscles, speaking in full sentences, no tachypnea. EXTREMITIES: No pedal edema or cyanosis. SKIN: Normal skin appearance. NEUROLOGIC: Alert and oriented x4. PSHYCHIATRIC: Appropriate affect, mood normal, behavior normal, intact thought and speech. LABORATORY DATA: I have personally reviewed and interpreted each of the patient?s relevant lab tests, abnormal findings are below: Date 01/21/25 04/06/25 ??WHITE?BLOOD?COUNT?(Thou/mm3) 8.2 7.6 ??RED?BLOOD?COUNT?(Miln/mm3) 4.57 4.67 ??HEMOGLOBIN?(gm/dl) 13.3?L 13.0?L ??HEMATOCRIT?(%) 41.6 40.7?L ??PLATELET?COUNT?(Thou/mm3) 222 194 ??NEUTROPHILS?%,?AUTO?(%) 71 77 ??LYMPH?%,?AUTO?(%) 19 15 ??NEUTROPHILS,?AUTO?(Thou/mm3) 5.8 5.9 ??GLUCOSE,RANDOM?(mg/dL) 103 109?H ??BLOOD?UREA?NITROGEN?(mg/dL) 10 12 ??CREATININE?(mg/dL) 0.90 0.90 ??SODIUM?(mmol/L) 141 141 ??POTASSIUM?(mmol/L) 4.3 4.4 ??CHLORIDE?(mmol/L) 105 105 ??CrCl?(CandG)?(ml/min) 70.65 70.82 ??AST/SGOT?(Unit/L) 17 17 ??ALT/SGPT?(Unit/L) 10 11 ??ALKALINE?PHOSPHATASE?(Unit/L) 81 79 ??BILIRUBIN,?TOTAL?(mg/dL) 0.5 0.7 ??PROTEIN?TOTAL?(gm/dl) 6.2 6.4 ??ALBUMIN,?SERUM?(gm/dl) 4.1 4.5 ??GLOBULIN?(gm/dl) 2.1?L 1.9?L ??ALBUMIN/GLOBULIN?RATIO 2.0 2.4?H ??CALCIUM,?SERUM?(mg/dL) 9.8 9.8 ??CALCIUM?SERUM?(CORRECTED)?(mg/dL) 9.8 9.8 ASSESSMENT/PLAN:?Darci Hu Assessment/Plan? Prostate cancer Patient had T3b tumor status post robotic prostatectomy No lymph nodes were removed Lymphovascular invasion as well as involvement of the bladder neck Plan for radiation Patient received Casodex and now received Lupron and done well Start Xtandi once radiation is complete RTC in 4 to 6 weeks I will see him back in the clinic in 2 months. Please get records for PSMA PET scan completed by patient outpatient ORDERS: Order # Description [id number] Comprehensive Metabolic Panel - 12 + CBC with Auto Diff + PSA RETURN TO CLINIC: I reviewed the diagnosis, prognosis, and recommended treatment/procedure options with the patient (and/or their legal customer development representative), including the potential benefits, risks, side effects and alternative therapies. We also discussed the option of no treatment and the possibility of clinical trial participation, if applicable. All questions were addressed, and they demonstrated understanding. They provided informed consent to proceed with the proposed plan of care. BILLING AND COMPLIANCE: I reviewed external records from providers outside my specialty as summarized above. I spent a total of 50 minutes on this patient?s care on the day of their visit excluding time spent related to any billed procedures. This time includes time spent with the patient as well as time spent documenting in the medical record, reviewing patients records and tests, obtaining history, placing orders, communicating with other healthcare professionals, counseling the patient, family or caregiver, and/or care coordination for the diagnoses above. Electronically Signed by: Matheus Hu MD T: 11:19 AM CC: PCP: Roshan Pearson Referring: Roshan Pearson This document was completed utilizing speech recognition software. Grammatical errors, random word insertions, pronoun errors, and incomplete sentences are an occasional consequence of this system due to software limitations, ambient noise, and hardware issues. Any formal questions or concerns about the content, text or information contained within the body of this dictation should be directly addressed to the provider for clarification.
== END 2025-06-02 23:59 | disposition home or self-care (01) ==
LOC: SCTC 10:32
PROVIDERS: PCP Family Medicine; Referring Provider Family Medicine; Visit Provider Internal Medicine Hematology & Oncology
DX: Z51.0 Encounter for antineoplastic radiation therapy (principal); C61 Malignant neoplasm of prostate; Z90.79 Acquired absence of other genital organ(s); Z79.818 Long term (current) use of other agents affecting estrogen receptors and estrogen levels
CPT/HCPCS: 77336; 77385; 77407; 99212; G0463